=== PATIENT | female | born 1975 | race Caucasian/White ===

== ENCOUNTER 2021-05-26 12:01 | Emergency (ER) | payer OTHER, SELFPAY ==
[2021-05-26 12:23] VITALS: BP 108/68; PULSE 98; RESP 24; TEMP 36.4; O2SAT 98
--- NOTE | 2021-05-26 12:57 | ED.DENTAL ---
HPI - Dental/Oral General Chief complaint: Dental/Oral Stated complaint: tooth pain Source: patient Mode of arrival: ambulatory Limitations: no limitations History of Present Illness HPI Narrative: Patient is a 45-year-old female who presents complaining of her right jaw swelling and dental pain x3 to 4 days. Patient reports attempting to get in with PCP and dentist without success. Patient reports history of dental infections in the past. She denies all other complaints at this time. Related Data Home Medications Medication Instructions Recorded Confirmed albuterol sulfate 2 puff INHALATION Q4-6H 05/26/21 05/26/21 diltiazem HCl 30 mg PO BID 05/26/21 05/26/21 ergocalciferol (vitamin D2) 1,250 mcg PO DAILY 05/26/21 05/26/21 insulin lispro [Humalog KwikPen 14 unit SUBCUT TID 05/26/21 05/26/21 Insulin] liraglutide [Victoza 3-Romero] 1.8 mg SUBCUT DAILY 05/26/21 05/26/21 medroxyprogesterone 10 mg PO DAILY 05/26/21 05/26/21 spironolactone 50 mg PO DAILY 05/26/21 05/26/21 umeclidinium-vilanterol [Anoro 2 inh INHALATION BID 05/26/21 05/26/21 Ellipta] Allergies Allergy/AdvReac Type Severity Reaction Status Date / Time No Known Allergies Allergy Verified 05/26/21 12:51 Review of Systems Review of Systems: CONSTITUTIONAL: Denies fever, chills, or sweats. EYES: Denies visual changes, redness, or discharge. ENT: Denies rhinorrhea, congestion, sore throat, or otalgia. Right-sided dental pain and swelling CARDIOVASCULAR: Denies chest pain, palpitations, or edema. RESPIRATORY: Denies cough or dyspnea. GASTROINTESTINAL: Denies abdominal pain, nausea, vomiting, or diarrhea. GENITOURINARY: Denies dysuria or hematuria. SKIN: Denies rash or itching. MUSCULOSKELETAL: Denies back pain, joint pain, or myalgia. NEUROLOGIC: Denies headache, numbness, dizziness, or weakness. PSYCHIATRIC: Denies anxiety or depression. [facility] Past Medical History Medical History Asthma Diabetes Fusion of spine, cervical region GERD (gastroesophageal reflux disease) HTN (hypertension) Family History Family History (Updated 05/26/21 @ 13:00 by ANTONIA Kamara) Other Hypertension Social History Social History (Updated 05/26/21 @ 13:01 by ANTONIA Kamara) Smoking status: Former smoker Alcohol intake: never Substance use: never Living arrangements: with family Occupation/Education: occupation Comments At the time of signature, I have reviewed and agree with nursing past medical, surgical, social, and family history unless otherwise noted. Please see nursing chart for further information. There is no relevant family history pertinent to the presenting complaint. Exam Narrative: GENERAL: Well-appearing, well-nourished, and in no acute distress. HEAD: Normocephalic, atraumatic. EYES: EOMI. No redness or drainage. Conjunctiva are normal. ENT: Mucous membranes pink and moist. Multiple dental caries. CHEST: No respiratory distress. Clear to auscultation. HEART: Regular rate and rhythm. EXTREMITIES: Normal range of motion. No edema. SKIN: Warm, dry, no rash. NEURO: No focal deficits. Alert and oriented x3. Gait steady. PSYCH: Normal affect. No signs of depression or anxiety. Course Vital Signs Vital signs: Vital Signs Temperature 36.4 C 05/26/21 12:23 Pulse Rate 98 05/26/21 12:23 Respiratory Rate 24 H 05/26/21 12:23 Blood Pressure 108/68 05/26/21 12:23 Pulse Oximetry 98 05/26/21 12:23 Temperature 36.4 C 05/26/21 12:23 Pulse Rate 98 05/26/21 12:23 Respiratory Rate 24 H 05/26/21 12:23 Blood Pressure 108/68 05/26/21 12:23 Pulse Oximetry 98 05/26/21 12:23 Reviewed. Patient has been instructed to follow-up with his PCP regarding his blood pressure. MDM - Dental/Oral MDM Narrative Medical decision making narrative: Patient most likely has dental infection. Patient reports history of dental infections in the past and requesting
== END 2021-05-26 13:10 | disposition home or self-care (01) ==
PROVIDERS: Emergency Provider Nurse Practitioner; PCP Internal Medicine
DX: K04.7 Periapical abscess without sinus (principal); J45.909 Unspecified asthma, uncomplicated; E11.9 Type 2 diabetes mellitus without complications; K21.9 Gastro-esophageal reflux disease without esophagitis; I10 Essential (primary) hypertension
CPT/HCPCS: 99213; G0463

== ENCOUNTER 2023-09-04 16:08 | Emergency (ER) | payer OTHER, SELFPAY ==
[2023-09-04 16:22] VITALS: BP 99/70; PULSE 92; RESP 20; TEMP 36.4; O2SAT 100
--- NOTE | 2023-09-04 16:37 | ED.GENADULT ---
HPI - General Adult General Chief complaint: Upper Respiratory Infection Stated complaint: Sinus, Chest Congestion, Headache, Earache Source: patient, RN notes reviewed and old records reviewed Mode of arrival: ambulatory Limitations: no limitations History of Present Illness HPI narrative: 47-year-old female presents to [facility] with complaint of cough, congestion, ear pressure, sinus pressure this started . Patient states taking [id number] medications with no relief. Patient denies shortness of breath, chest pain, dizziness, weakness. MD complaint: Cough/congestion Onset (ago): day(s) (4) Related Data Home Medications Medication Instructions Recorded Confirmed albuterol sulfate 90 mcg/actuation 2 puff inhalation Q4-6H 05/26/21 05/26/21 aerosol inhaler diltiazem HCl 30 mg tablet 30 mg PO BID 05/26/21 05/26/21 ergocalciferol (vitamin D2) 1,250 1,250 mcg PO DAILY 05/26/21 05/26/21 mcg (50,000 unit) capsule insulin lispro 100 unit/mL 14 unit subcut TID 05/26/21 05/26/21 subcutaneous pen (Humalog KwikPen (U-100) Insulin) liraglutide 0.6 mg/0.1 mL (18 mg/3 1.8 mg subcut DAILY 05/26/21 05/26/21 mL) subcutaneous pen injector (Victoza 3-Romero) medroxyprogesterone 10 mg tablet 10 mg PO DAILY 05/26/21 05/26/21 spironolactone 50 mg tablet 50 mg PO DAILY 05/26/21 05/26/21 umeclidinium 62.5 mcg-vilanterol 2 inh inhalation BID 05/26/21 05/26/21 25 mcg/actuation powdr for inhalation (Anoro Ellipta) Allergies Allergy/AdvReac Type Severity Reaction Status Date / Time No Known Allergies Allergy Verified 05/26/21 12:51 Review of Systems Constitutional: Constitutional: Reports no additional constitutional complaints, Reports body ache(s), Denies chills, Denies fatigue, Denies fever(s) and Denies headache(s) Eyes: Eyes: Reports no additional eye complaints and Denies blurry vision ENT: Reports system reviewed and no additional complaints, except as documented, Denies vertigo, Denies dizziness, Denies ear discharge, Reports otalgia, Denies facial pain, Denies headache(s), Reports nasal congestion, Reports nasal discharge, Denies sinus pain, Reports sinus pressure and Denies sore throat Cardiovascular: Cardiovascular: Reports no additional cardiovascular complaints, Denies chest pain, Denies chest pain at rest, Denies rapid heart rate and Denies dyspnea Respiratory: Respiratory: Reports no additional respiratory complaints, Reports chest congestion, Reports cough, Denies pain on inspiration, Denies pain with cough and Denies dyspnea Gastrointestinal: Gastrointestinal: Denies abdominal pain, Denies diarrhea, Denies nausea and Denies vomiting Integumentary/Breasts: Skin/Breast: Denies rash Neurologic: Reports system reviewed and no additional complaints, except as documented, Denies vertigo, Denies dizziness and Denies headache(s) Endocrine: Endocrine: Denies fatigue PMFSH Past Medical History Medical History Asthma Diabetes Fusion of spine, cervical region GERD (gastroesophageal reflux disease) HTN (hypertension) Family History Family History Other Hypertension Social History Social History Smoking status: Former smoker Alcohol intake: never Substance use: never Living arrangements: with family Occupation/Education: occupation Comments At the time of my signature, I reviewed and agree with the nursing past medical, surgical, social, and family history. There is no relevant family history pertinent to the patient complaint. Exam Const: General: cooperative, healthy appearing, no acute distress and well nourished Nutritional Appearance: well nourished Orientation/consciousness: patient oriented x3 Limitations: no limitations HENMT: Head: normal to inspection and normocephalic Ears: external ears norm
[2023-09-04 16:44] VITALS: BP 99/70; PULSE 92; RESP 16; TEMP 36.4; O2SAT 100
== END 2023-09-04 17:13 | disposition home or self-care (01) ==
PROVIDERS: Emergency Provider Registered Nurse; PCP Internal Medicine
DX: J20.9 Acute bronchitis, unspecified (principal); E11.9 Type 2 diabetes mellitus without complications; I10 Essential (primary) hypertension; Z87.891 Personal history of nicotine dependence; Z20.822 Contact with and (suspected) exposure to COVID-19
CPT/HCPCS: 87426; 87804; 99213; C9803; G0463

== ENCOUNTER 2024-03-13 16:25 | Emergency (ER) | payer BC, SELFPAY ==
[2024-03-13 16:30] VITALS: BP 99/71; PULSE 82; RESP 18; TEMP 36.2; O2SAT 100
--- NOTE | 2024-03-13 17:11 | ED.EAR ---
HPI - Ear Problem General Chief complaint: Ear Stated complaint: Right Ear Pain Time Seen by Provider: 03/13/24 16:40 Source: patient, RN notes reviewed and old records reviewed Mode of arrival: ambulatory Limitations: no limitations History of Present Illness HPI Narrative: 48-year-old female to Express Care with complaint of right ear pain and pressure for 2 weeks. Patient denies fever, cough, allergies, dizziness, sore throat. Patient has attempted to treat with [id number] medication without relief. Patient reports history of tinnitus. Patient states that she has hearing aids she has not worn for very long time because they are uncomfortable. Patient denies shortness breath or chest pain. Respirations even and nonlabored. Patient able to speak in full sentences without difficulty. Patient in no acute distress. Related Data Home Medications Medication Instructions Recorded Confirmed albuterol sulfate 90 mcg/actuation 2 puff inhalation Q4-6H 05/26/21 05/26/21 aerosol inhaler ergocalciferol (vitamin D2) 1,250 1,250 mcg PO DAILY 05/26/21 05/26/21 mcg (50,000 unit) capsule medroxyprogesterone 10 mg tablet 10 mg PO DAILY 05/26/21 05/26/21 spironolactone 50 mg tablet 50 mg PO DAILY 05/26/21 05/26/21 umeclidinium 62.5 mcg-vilanterol 2 inh inhalation BID 05/26/21 05/26/21 25 mcg/actuation powdr for inhalation (Anoro Ellipta) Prilosec 03/13/24 insulin aspart U-100 100 unit/mL subcut 03/13/24 (3 mL) subcutaneous pen (Novolog FlexPen U-100 Insulin aspart) insulin glargine 100 unit/mL (3 unit subcut 03/13/24 mL) subcutaneous pen (Lantus Solostar U-100 Insulin) metoprolol tartrate 25 mg tablet mg 03/13/24 pravastatin 20 mg tablet mg 03/13/24 semaglutide 2 mg/dose (8 mg/3 mL) mg subcut 03/13/24 subcutaneous pen injector (Ozempic) Allergies Allergy/AdvReac Type Severity Reaction Status Date / Time No Known Allergies Allergy Verified 05/26/21 12:51 Review of Systems Review of Systems: All systems reviewed & are unremarkable except as noted in HPI and below Constitutional: Constitutional: Reports no additional constitutional complaints Eyes: Eyes: Reports no additional eye complaints ENT: Reports as per HPI and Reports otalgia ( right) Cardiovascular: Cardiovascular: Reports no additional cardiovascular complaints, Denies chest pain and Denies dyspnea Respiratory: Respiratory: Reports no additional respiratory complaints, Denies cough and Denies dyspnea Musculoskeletal: Musculoskeletal: Reports no additional musculoskeletal complaints Neurologic: Reports system reviewed and no additional complaints, except as documented Psychiatric: Psychiatric: Reports no additional psychiatric complaints PMFSH Past Medical History Medical History Asthma Diabetes Fusion of spine, cervical region GERD (gastroesophageal reflux disease) HTN (hypertension) Family History Family History Other Hypertension Social History Social History Smoking status: Former smoker Alcohol intake: never Substance use: never Living arrangements: with family Occupation/Education: occupation Comments At the time of my signature, I reviewed and agree with the nursing past medical, surgical, social, and family history. There is no relevant family history pertinent to the patient complaint. Exam Const: General: cooperative, healthy appearing, comfortable, no acute distress, alert and well nourished Nutritional Appearance: well nourished Orientation/consciousness: patient oriented x3 Limitations: no limitations HENMT: Head: normal to inspection Ears: Abnormal EAC present erythema on the right, edema on the right and EAC tenderness on the right and TM abnormal erythematous bilateral, with fluid behind the TM bilat
== END 2024-03-13 17:30 | disposition home or self-care (01) ==
PROVIDERS: Emergency Provider Nurse Practitioner Family; PCP Internal Medicine
DX: H66.91 Otitis media, unspecified, right ear (principal); Z87.891 Personal history of nicotine dependence; J45.909 Unspecified asthma, uncomplicated; E11.9 Type 2 diabetes mellitus without complications; K21.9 Gastro-esophageal reflux disease without esophagitis; I10 Essential (primary) hypertension
CPT/HCPCS: 99213; G0463

== ENCOUNTER 2024-09-09 15:55 | Emergency (ER) | payer BC, SELFPAY ==
[2024-09-09 16:03] VITALS: BP 106/62; PULSE 86; RESP 16; TEMP 36.1; O2SAT 97
--- NOTE | 2024-09-09 17:07 | ED_ITS ---
HPI - URI/Sore Throat General Chief Complaint: Upper Respiratory Infection Stated Complaint: wheezing/coughing Time Seen by Provider: 09/09/24 16:59 Source: patient and RN notes reviewed Mode of arrival: ambulatory Limitations: no limitations History of Present Illness HPI Narrative: Patient presents today complaining of an 8 day history of cough, rhinorrhea, sore throat with wheezing and shortness of breath since last night. She has tried Mucinex, Flonase, and her asthma inhalers without much relief. No fevers noted. Related Data Home Medications ?Medication ?Instructions ?Recorded ?Confirmed ?Last Taken ?Type albuterol sulfate 90 mcg/actuation 2 puff inhalation Q4-6H 05/26/21 05/26/21 Unknown History aerosol inhaler ergocalciferol (vitamin D2) 1,250 1,250 mcg PO DAILY 05/26/21 05/26/21 Unknown History mcg (50,000 unit) capsule medroxyprogesterone 10 mg tablet 10 mg PO DAILY 05/26/21 05/26/21 Unknown History spironolactone 50 mg tablet 50 mg PO DAILY 05/26/21 05/26/21 Unknown History umeclidinium 62.5 mcg-vilanterol 2 inh inhalation BID 05/26/21 05/26/21 Unknown History 25 mcg/actuation powdr for inhalation (Anoro Ellipta) Prilosec 03/13/24 Unknown History insulin aspart U-100 100 unit/mL subcut 03/13/24 Unknown History (3 mL) subcutaneous pen (Novolog FlexPen U-100 Insulin aspart) insulin glargine 100 unit/mL (3 unit subcut 03/13/24 Unknown History mL) subcutaneous pen (Lantus Solostar U-100 Insulin) metoprolol tartrate 25 mg tablet mg 03/13/24 Unknown History pravastatin 20 mg tablet mg 03/13/24 Unknown History semaglutide 2 mg/dose (8 mg/3 mL) mg subcut 03/13/24 Unknown History subcutaneous pen injector (Ozempic) metformin 500 mg tablet mg 09/09/24 Unknown History Allergies Allergy/AdvReac Type Severity Reaction Status Date / Time No Known Allergies Allergy Verified 09/09/24 16:22 Review of Systems Review of Systems: CONSTITUTIONAL: Denies body aches, fever, chills, or sweats. EYES: Denies visual changes, redness, or discharge. ENT: Denies congestion, or otalgia.+ rhinorrhea, sore throat CARDIOVASCULAR: Denies chest pain, palpitations, or edema. RESPIRATORY: + cough, shortness of breath, wheezing GASTROINTESTINAL: Denies abdominal pain, nausea, vomiting, or diarrhea. GENITOURINARY: Denies dysuria or hematuria. SKIN: Denies rash, itching, or wounds. MUSCULOSKELETAL: Denies back pain, joint pain, or myalgia. NEUROLOGIC: Denies headache, numbness, tingling, or weakness. PSYCH: Denies depression or anxiety. [facility] Past Medical History Medical History Fusion of spine, cervical region GERD (gastroesophageal reflux disease) Asthma HTN (hypertension) Diabetes Family History Family History Other Hypertension Social History Social History Smoking status: Former smoker Alcohol intake: never Substance use: never Living arrangements: with family Occupation/Education: occupation Comments At time of signature, I have reviewed and agree with nursing past medical, surgical, social and family history unless otherwise noted. Please see nursing chart for further information. There is no relevant family history pertinent to the presenting complaint Exam Narrative: GENERAL: Mildly ill-appearing, well-nourished, and in no acute distress. HEAD: Normocephalic, atraumatic. EYES: EOMI. No redness or drainage. Conjunctivae normal. ENT: Mucous membranes pink and moist. Nares clear. Mild rhinorrhea. TMs normal bilaterally. Throat normal. Uvula midline. NECK: Normal AROM. Supple. No lymphadenopathy. CHEST: No respiratory distress. Expiratory wheezing throughout. Inspiratory wheezing in the left lower lobe. Coarseness in the bilateral lower lobes. HEART: Regular rate and rhythm. No murmur appreciated. EXTREMITIES: Normal range of motion. No edema. SKIN: Warm, dry, no rash. Capillary refill normal. Normal skin turgor. NEURO: No focal deficits. Alert and oriented x3. Gait steady. PSYCH: Normal affect. No signs of depression or anxiety. Course Course Level of Care: Express Care Visit Vital Signs Vital signs: Vital Signs Temperature 97 F L 09/09/24 16:03 Pulse Rate 86 09/09/24 16:03 Respiratory Rate 16 09/09/24 16:03 Blood Pressure 106/62 09/09/24 16:03 Pulse Oximetry 97 09/09/24 16:03 Oxygen Delivery Room Air 09/09/24 16:03 Temperature 97 F L 09/09/24 16:03 Pulse Rate 86 09/09/24 16:03 Respiratory Rate 16 09/09/24 16:03 Blood Pressure 106/62 09/09/24 16:03 Pulse Oximetry 97 09/09/24 16:03 Oxygen Delivery Room Air 09/09/24 16:03 Reviewed MDM - URI/Sore Throat MDM Narrative Medical decision making narrative: Unable to complete a chest x-ray due to machine malfunction. Patient will be treated with Augmentin and prednisone for lower respiratory infection and asthma exacerbation. Anticipatory guidance given. Differential Diagnosis Differential diagnosis: Likely upper respiratory infection, sinusitis, viral infection, bronchitis and other (Pneumonia, asthma exacerbation) Critical Care Time Critical Care Time Critical Care Time: No Discharge Plan Discharge Clinical Impression: Acute lower respiratory tract infection Asthma exacerbation Qualifiers: Asthma severity: unspecified severity Asthma persistence: unspecified Qualified Code(s): J45.901 - Unspecified asthma with (acute) exacerbation Patient Disposition: Home, Self-Care Condition: Stable Instructions: Acute Bronchitis (ED) Additional Instructions: Please take all medications as prescribed. Be aware that the prednisone can raise your blood sugar. Continue Mucinex at home. Follow-up with your PCP towards the end of the week if symptoms are not improving. Go to the ER immediately if symptoms worsen. Patient Language: [place] Prescriptions: New amoxicillin-pot clavulanate 875-125 mg tablet 1 tablet PO Q12H 7 Days Qty: 14 0RF prednisone 10 mg tablet 30 mg PO DAILY 5 Days Qty: 15 0RF No Action metoprolol tartrate 25 mg tablet pravastatin 20 mg tablet insulin aspart U-100 [Novolog FlexPen U-100 Insulin] 100 unit/mL (3 mL) insulin pen SUBCUT insulin glargine [Lantus Solostar U-100 Insulin] 100 unit/mL (3 mL) insulin pen SUBCUT Ozempic 2 mg/dose (8 mg/3 mL) pen injector SUBCUT Prilosec medroxyprogesterone 10 mg tablet 10 mg PO DAILY ergocalciferol (vitamin D2) 1,250 mcg (50,000 unit) capsule 1,250 mcg PO DAILY albuterol sulfate 90 mcg/actuation HFA aerosol inhaler 2 puff INHALATION Q4-6H spironolactone 50 mg tablet 50 mg PO DAILY Anoro Ellipta 62.5-25 mcg/actuation blister with device 2 inh INHALATION BID ibuprofen 800 mg tablet 800 mg PO TID PRN (Reason: pain) Qty: 20 0RF metformin 500 mg tablet Follow-up/Referrals: Pieter,Ricardo Tsai MD [Primary Care Provider] - Time of Disposition: 17:21
== END 2024-09-09 17:23 | disposition home or self-care (01) ==
PROVIDERS: Emergency Provider Nurse Practitioner; PCP Internal Medicine
DX: J22 Unspecified acute lower respiratory infection (principal); J45.901 Unspecified asthma with (acute) exacerbation; I10 Essential (primary) hypertension; E11.9 Type 2 diabetes mellitus without complications; Z79.84 Long term (current) use of oral hypoglycemic drugs
CPT/HCPCS: 99213; G0463